=== PATIENT | female | born 1970 | race Hispanic/Latino ===

== ENCOUNTER 2016-06-07 06:39 | Emergency (ER) | payer BC ==
[2016-06-07 07:53] VITALS: BP 154/95
[2016-06-07 08:11] LABS: Basophils % (Auto) 0.2 % (0.0-1.8); Eosinophils % (Auto) 0.2 % (0.0-4.3); Hematocrit 42.1 % (30.3-42.9); Hemoglobin 13.9 gm/dl (10.1-14.3); Mean Corpuscular HGB Conc 33 % (30-34); Mean Corpuscular Hemoglobin 30 pg (28-32); Mean Corpuscular Volume 90 fl (79-97); Platelet Count 235 K/mm3 (140-440); Red Cell Distribution Width 12.7 % (13.2-15.2); White Blood Count 11.4 K/mm3 (4.5-11.0)
[2016-06-07 08:34] LABS: Alanine Aminotransferase 13 units/L (7-56); Albumin 4.2 g/dL (3.9-5); Albumin/Globulin Ratio 1.4 %; Alkaline Phosphatase 54 units/L (35-129); Anion Gap 18 mmol/L; BUN/Creatinine Ratio 15.71; Bilirubin,Total 0.4 mg/dL (0.1-1.2); Blood Urea Nitrogen 11 mg/dL (7-17); Calcium 9.3 mg/dL (8.4-10.2); Carbon Dioxide 25 mmol/L (22-30); Chloride 99.2 mmol/L (98-107); Glucose 132 mg/dL (65-100); Lipase 16 units/L (13-60); Potassium 4.1 mmol/L (3.6-5.0); Sodium 138 mmol/L (137-145); Total Protein 7.2 g/dL (6.3-8.2)
[2016-06-07 10:19] LABS: Bilirubin,Urine NEG (Negative); Blood,Urine NEG (Negative); Ketones,Urine NEG (Negative); Leukocyte Esterase,Urine NEG (Negative); Mucus,Urine FEW /HPF; Nitrite,Urine NEG (Negative); Protein,Urine <15 mg/dL mg/dL (Negative)
--- NOTE | 2016-06-08 06:50 | ED Elopement Review ---
ED Pt Elopement review - Results review Lab results: Laboratory Tests 06/07/16 06/07/16 06/07/16 08:02 08:02 09:59 WBC 11.4 H RBC 4.70 Hgb 13.9 Hct 42.1 MCV 90 MCH 30 MCHC 33 RDW 12.7 L Plt Count 235 Lymph % (Auto) 8.9 L Glynn % (Auto) 4.2 Eos % (Auto) 0.2 Baso % (Auto) 0.2 Lymph # 1.0 L Glynn # 0.5 Eos # 0.0 Baso # 0.0 Seg Neutrophils % 86.5 H Seg Neutrophils # 9.9 H Sodium 138 Potassium 4.1 Chloride 99.2 Carbon Dioxide 25 Anion Gap 18 BUN 11 Creatinine 0.7 Estimated GFR > 60 BUN/Creatinine Ratio 15.71 Glucose 132 H Calcium 9.3 Total Bilirubin 0.4 AST 16 ALT 13 Alkaline Phosphatase 54 Total Protein 7.2 Albumin 4.2 Albumin/Globulin Ratio 1.4 Lipase 16 Urine Color Yellow Urine Turbidity Clear Urine pH 7.0 Ur Specific [place] 1.021 Urine Protein <15 mg/dl Urine Glucose (UA) Neg Urine Ketones Neg Urine Blood Neg Urine Nitrite Neg Urine Bilirubin Neg Urine Urobilinogen 4.0 Ur Leukocyte Esterase Neg Urine WBC (Auto) 1.0 Urine RBC (Auto) 5.0 U Epithel Cells (Auto) 1.0 Urine Mucus Few Urine HCG, Qual Negative - Call Back decision Pt Call Back Decision: No action required
== END 2016-06-07 08:45 | disposition left against medical advice (07) ==
LOC: ED 06:39
DX: R10.9 Unspecified abdominal pain (principal); Z53.21 Procedure and treatment not carried out due to patient leaving prior to being seen by health care provider
CPT/HCPCS: 36415; 80053; 81001; 81025; 83690; 85025